=== PATIENT | male | born 1935 | race Caucasian/White ===

== ENCOUNTER 2025-03-23 09:56 | Emergency (ER) | payer MEDICARE ==
[~2025-03-23 09:56] MED LIST: Iopamidol 370 76% 100 ML VIAL ONE
[2025-03-23 10:26] LABS: #Basophils Less than 0.03 10x3/uL (0.0-0.2); #Eosinophils 0.13 10x3/uL (0.0-0.5); #Monocytes 0.69 10x3/uL (0.0-1.1); #Neutrophils 6.66 10x3/uL (1.5-8.4); %Basophils 0.2 % (0.0-2.0); %Eosinophils 1.5 % (0.0-6.0); %Lymphocytes 11.0 % (18.0-47.0); %Monocytes 8.1 % (0.0-10.0); %Neutrophils 78.4 % (40.0-75.0); Hematocrit 37.6 % (38.8-50.0); Hemoglobin 12.0 g/dL (13.5-17.5); Mean Corpuscular Hemoglobin 26.8 pg (27.0-33.0); Mean Corpuscular Volume 84.1 fL (81.2-95.1); Platelet Count 232 10x3/uL (150-450); Red Blood Cell (RBC) Count 4.47 10x6/uL (4.32-5.72); White Blood Cell (WBC) Count 8.51 10x3/uL (3.5-10.5)
[2025-03-23 10:45] LABS: Troponin I Less than 0.010 ng/mL (< 0.028)
[2025-03-23 10:56] LABS: Anion Gap 14 mmol/L (10-20); Chloride 107 mmol/L (98-107); Globulin 2.1 g/dL (2.4-3.5); Potassium 3.9 mmol/L (3.5-5.1); Sodium 139 mmol/L (136-145)
[2025-03-23 11:16] LABS: ALT (SGPT) 8 U/L (Less than 45); AST (SGOT) 10 U/L (11-34); Albumin 3.8 g/dL (3.1-4.5); Alkaline Phosphatase 47 U/L (40-110); BUN (Urea Nitrogen) 14 mg/dL (8.4-25.7); Bilirubin, Total 0.4 mg/dL (0.3-1.2); Calc. Creatinine Clearance 0 mL/min (70-130); Calcium 8.6 mg/dL (7.8-10.44); Carbon Dioxide 21 mmol/L (23-31); Glucose 116 mg/dL (83-110)
[2025-03-23 11:25] LABS: INR-International Normal Ratio 1.1; PTT 33.6 sec (22.0-33.0); Prothrombin Time 11.9 sec (9.5-12.1)
[2025-03-23 11:34] LABS: Magnesium 1.8 mg/dL (1.6-2.6)
== END 2025-03-23 14:23 | disposition home or self-care (01) ==
LOC: CSHERS 09:56
DX: R06.02 Shortness of breath (principal); I10 Essential (primary) hypertension; I48.91 Unspecified atrial fibrillation; I25.10 Atherosclerotic heart disease of native coronary artery without angina pectoris; Z95.0 Presence of cardiac pacemaker
CPT/HCPCS: 36415; 71045; 71275; 80053; 83735; 83880; 84443; 84484; 85025; 85610; 85730; 93005